=== PATIENT | male | born 1985 | race Caucasian/White ===

== ENCOUNTER 2016-07-14 23:36 | Emergency (ER) | payer OTHER ==
[~2016-07-14] VITALS: Ht 172.7 cm; Wt 118.4 kg
[~2016-07-14 23:36] MED LIST: ACET-1256 PO; IBUP-1050 PO
[2016-07-14 23:41] VITALS: TEMP 36.8; Ht 172.7 cm; Wt 118.4 kg
[2016-07-15] MEDS ORDERED: KETOROLAC TROMETHAMINE 60 MG/2 ML VIAL IM STA
[2016-07-15] MEDS ORDERED: HYDROmorphone INJ 2 MG/ML SYR/VIAL IM STA
--- NOTE | 2016-07-15 00:19 | EMERGENCY ROOM VISIT NOTE ---
History Report prepared by Paresh: Carey Mann Under the Supervision of: Dr. Jaimee Aponte D.O. First contact with patient: 23:47 Chief Complaint: DENTAL PAIN Stated Complaint: SEVERE TOOTH ACHE/INFECTION,RIGHT EAR PAIN Nursing Triage Summary: Patient reports having issues with the wisdom tooth on the right lower jaw for about 3 weeks. Patient just got dental insurance approved. Patient has been taking Tylenol and Motrin for the pain; patient was on Amoxicillin. Patient saw the dentist on Thursday last week and was placed on Penicillin. Pain is worsening. Dentist prescribed Tylenol #3 for the patient today which helped x 2 doses. Patient reports pain is back to what it was before at this time. History of Present Illness The patient is a 30 year old male who presents to the Emergency Room with complaints of persistent right lower wisdom tooth pain starting 3 weeks [employer]. The patient currently rates his pain as an 8.5/10 in severity. The patient states that his right lower wisdom tooth has been severely infected over the last 3 weeks. The patient states that he took Tylenol and Ibuprofen every 4 hours which made the pain tolerable to the patient. He states that about 6 days ago he started experiencing stomach pain and stopped taking both in order to stop the stomach pain. The patient states that 3 days ago he saw his dentist and was prescribed penicillin for the infection and started to take Tylenol and ibuprofen alternating. He states that the pain continued. He states he called the dentist earlier today and was prescribed Tylenol with codeine for pain. The patient states that the pain was causing ear pain. The patient states that he is scheduled to have his tooth extracted in 2 days by an oral surgeon. The patient states he has not eaten for the last 8 hour and has taken a dose of Tylenol with codeine on an empty stomach. He states that he does currently have some nausea. The patient denies any other cold symptoms. Source of History: patient Onset: 3 weeks FINANCIAL CONSULTANT Position: teeth (right lower wisdom tooth) Symptom Intensity: 8.5/10 Timing: other (persistent) Modifying Factors (Relieving): tylenol, ibuprofen Note: Associated symptoms: Ear pain Patient denies cold symptoms. Review of Systems See HPI for pertinent positives & negatives. A total of 10 systems reviewed and were otherwise negative. Past Medical & Surgical Medical Problems: (1) Asthma (2) Bronchitis (3) Cyst - pilonidal (4) Hernia repair (5) Pneumonia Family History Cancer Diabetes mellitus Gallbladder disease Heart disease Hypertension Kidney disease Lung disease Seizures Social History Smoking Status: Current Every Day Smoker Alcohol Use: occasionally Marital Status: Housing Status: lives with family Occupation Status: employed Current/Historical Medications Scheduled PRN Acetaminophen (Tylenol), 1,000 MG PO Q4 PRN for Pain or Fever Ibuprofen (Advil), 400 MG PO Q4 PRN for Headache Allergies Coded Allergies: No Known Allergies (Unverified , 07/14/16) Physical Exam Vital Signs Date Time Temp Pulse Resp B/P Pulse Ox O2 Delivery O2 Flow Rate FiO2 07/15/16 01:11 86 16 151/81 98 07/14/16 23:41 36.8 93 18 161/85 97 Room Air Physical Exam HEENT: Head - normocephalic and atraumatic Pupils are equal, round, and reactive to light. Extraocular eye muscles are intact, and sclera are anicteric. Nose - moist nasal mucosa without discharge. Mouth - moist buccal mucosa, fractured right lower wisdom tooth, no surrounding erythema or gingival edema Oropharynx is nonerythematous and there is no tonsillar exudate or edema noted. Neck: Supple; no JVD, nuchal rigidity, cervical lymphadenopathy. Heart: Regular rate and rhythm. There is a normal S1 and S2 with no murmurs, clicks, or gallops appreciated. Lungs: Clear to auscultation bilaterally with no wheezes, rales, or rhonchi. Abdomen: Soft, completely nontender, nondistended, with good bowel sounds. There are no palpable pulsatile masses or hepatosplenomegaly. There is no guarding, rigidity, or rebound noted. Extremities: No evidence of cyanosis, clubbing, or edema. There are easily palpable peripheral pulses. Skin: warm and dry with good turgor and no rashes. Medical Decision & Procedures Medications Administered Medications (Trade) Dose Ordered Sig/Connor Route Start Time Stop Time Status Last Admin Dose Admin Ketorolac Tromethamine (Toradol Inj) 60 mg NOW STAT IM 07/15/16 00:00 07/15/16 00:01 DC 07/15/16 00:09 60 MG Hydromorphone HCl (Dilaudid Inj) 2 mg NOW STAT IM 07/15/16 00:00 07/15/16 00:01 DC 07/15/16 00:09 2 MG Procedure Medications Administered: Ketoralac Tromethamine Hydromorphone HCl ED Course 2351: Past medical records reviewed. The patient was evaluated in room B11B. A complete history and physical exam was performed. 000: Ordered Toradol Inj 60 mg IM, Dilaudid Inj 2 mg IM. 0038: Upon reevaluation, the patient had significant relief of his symptoms. I discussed findings and results with him. He verbalized agreement of the treatment plan. The patient was discharged home. Medical Decision The patient is a 30 year old male who presents to the ED with dental pain. Differential diagnosis includes but are not limited to dental abscess and dentalgia. The patient was felt to have a dental infection that is currently being treated with penicillin. Patient's pain has escalated. He was prescribed Tylenol No. 3. Patient's pain became more severe this evening to the point that he could not tolerate it. He is scheduled to have the tooth extracted in 2 days. He was given IM Dilaudid and IM Toradol with significant relief to this pain. The patient will start taking the Tylenol with Codeine every 4-6 hours after arriving at home. He has enough to last him through till Thursday when he will see an oral surgeon for tooth extraction. The tooth was fractured but there were no obvious signs of surrounding infection. Impression Primary Impression: Dentalgia Scribe Attestation The scribe's documentation has been prepared under my direction and personally reviewed by me in its entirety. I confirm that the note above accurately reflects all work, treatment, procedures, and medical decision making performed by me. Departure Information Dispostion Home / Self-Care Referrals Bob Talbot M.D. (PCP) Forms HOME CARE DOCUMENTATION FORM, IMPORTANT VISIT INFORMATION Patient Instructions My [facility] Additional Instructions Rest with your head elevated. Take 800mg every 6-8 hours with a meal for pain Use tylenol #3 as directed. Follow up on Thu with oral surgeon
[2016-07-15 01:11] VITALS: BP 151/81; PULSE 86; O2SAT 98
== END 2016-07-15 01:12 | disposition home or self-care (01) ==
LOC: C.EDB 23:37
DX: K08.89 Other specified disorders of teeth and supporting structures (principal); J45.909 Unspecified asthma, uncomplicated; F17.200 Nicotine dependence, unspecified, uncomplicated; Z87.01 Personal history of pneumonia (recurrent); Z83.3 Family history of diabetes mellitus; Z82.49 Family history of ischemic heart disease and other diseases of the circulatory system; Z84.1 Family history of disorders of kidney and ureter

== ENCOUNTER 2016-12-15 00:59 | Emergency (ER) | payer OTHER ==
[~2016-12-15] VITALS: Ht 175.3 cm; Wt 108.9 kg
[2016-12-15 01:08] VITALS: TEMP 36.7; Ht 175.3 cm; Wt 108.9 kg
[2016-12-15] MEDS ORDERED: PROCHLORPERAZINE 5 MG/ML 2 ML VIAL IV STA (01:14)
[2016-12-15] MEDS ORDERED: DiphenhydrAMINE HCL 50 MG/ML VIAL IV STA (01:14)
[2016-12-15] MEDS ORDERED: SODIUM CHLORIDE 0.9% 1000ML 1,000 ML IV STA (01:14)
[2016-12-15] MEDS ORDERED: KETOROLAC TROMETHAMINE 30 MG/ML VIAL IV STA (01:14)
--- NOTE | 2016-12-15 01:29 | EMERGENCY ROOM VISIT NOTE ---
History Report prepared by Paresh: Deirdre Bernal Under the Supervision of: Dr. Yordy Campuzano M.D. First contact with patient: 01:09 Chief Complaint: CHEST PAIN Stated Complaint: SHARP PAIN ACROSS CHEST DOWN RT ARM W/ HEADACHE History of Present Illness The patient is a 31 year old male who presents to the Emergency Room with complaints of intermittent sharp chest pain for 2 days. The patient states that tonight he was driving to get his kids since he just got home from the beach when it became the worst he has ever had it. He currently rates his pain as a 8/ 10. He notes that he slumped over the steering wheel because the pain was so bad. He notes that he used his inhaler that he has for asthma with little relief. The patient complains of a headache and cough. The patient denies nausea , vomiting, loss of consciousness, and abdominal pain. Source of History: patient Onset: 2 days Position: chest Symptom Intensity: 8/10 Quality: sharp Timing: intermittent Associated Symptoms: + headache, + cough, No LOC, No nausea, No vomiting, No abdominal pain Review of Systems See HPI for pertinent positives & negatives. A total of 10 systems reviewed and were otherwise negative. Past Medical & Surgical Medical Problems: (1) Asthma (2) Bronchitis (3) Cyst - pilonidal (4) Hernia repair (5) Pneumonia Family History Cancer Diabetes mellitus Fhx blood clots Gallbladder disease Heart disease Hypertension Kidney disease Lung disease Seizures Social History Smoking Status: Current Every Day Smoker Alcohol Use: occasionally Marital Status: Housing Status: lives with family Occupation Status: employed Current/Historical Medications Scheduled PRN Acetaminophen (Tylenol), 1,000 MG PO Q4 PRN for Pain or Fever Albuterol Hfa (Ventolin Hfa), 2 PUFFS INH Q6H PRN for SOB/Wheezing Aspirin (Aspirin), 650 MG PO Q4 PRN for Pain Ibuprofen (Advil), 400 MG PO Q4 PRN for Headache Allergies Coded Allergies: No Known Allergies (Unverified , 12/15/16) Physical Exam Vital Signs Date Time Temp Pulse Resp B/P (MAP) Pulse Ox O2 Delivery O2 Flow Rate FiO2 12/15/16 03:05 70 20 111/68 95 Room Air 12/15/16 02:05 69 16 123/67 94 Room Air 12/15/16 01:12 80 12/15/16 01:08 97 Room Air 8/21/17 01:08 36.7 88 20 141/88 97 Room Air Physical Exam GENERAL: Patient is uncomfortable appearing and in moderate distress. HEENT: No acute trauma, normocephalic atraumatic, mucous membranes moist, no nasal congestion, no scleral icterus. NECK: No stridor, no adenopathy, no meningismus, trachea is midline. LUNGS: No dyspnea. Clear to auscultation and equal bilaterally. No wheeze, no rhonchi. HEART: Regular rate and rhythm. No murmurs, rubs, gallops appreciated. CHEST: Tenderness to palpation over left anterior chest. ABDOMEN: Soft, nontender, bowel sounds positive, no masses appreciated, no peritonitis. BACK: No midline tenderness, no CVA tenderness EXTREMITIES: Normal motion all extremities, no cyanosis, no edema. NEUROLOGIC: Alert and oriented, no acute motor or sensory deficits, no focal weakness, cranial nerves grossly intact. SKIN: No rash, no jaundice, no diaphoresis. Medical Decision & Procedures ER Provider Diagnostic Interpretation: X ray results are stated below per my interpretation: Chest: 1 view: No infiltrate, no effusion, normal cardiac border. Laboratory Results 12/15/16 01:10 Red Blood Count 4.96, Mean Corpuscular Volume 86.3, Mean Corpuscular Hemoglobin 30.6, Mean Corpuscular Hemoglobin Concent 35.5, Mean Platelet Volume 11.0, Neutrophils (%) (Auto) 57.0, Lymphocytes (%) (Auto) 32.9, Monocytes (%) (Auto) 7.0, Eosinophils (%) (Auto) 2.5, Basophils (%) (Auto) 0.3, Neutrophils # (Auto) 6.78, Lymphocytes # (Auto) 3.90, Monocytes # (Auto) 0.83, Eosinophils # (Auto) 0.30, Basophils # (Auto) 0.03 12/15/16 01:10 Test 12/15/16 01:10 12/15/16 02:44 White Blood Count 11.87 K/uL (4.8-10.8) Red Blood Count 4.96 M/uL (4.7-6.1) Hemoglobin 15.2 g/dL (14.0-18.0) Hematocrit 42.8 % (42-52) Mean Corpuscular Volume 86.3 fL (80-100) Mean Corpuscular Hemoglobin 30.6 pg (25-34) Mean Corpuscular Hemoglobin Concent 35.5 g/dl (32-36) Platelet Count 242 K/uL (130-400) Mean Platelet Volume 11.0 fL (7.4-10.4) Neutrophils (%) (Auto) 57.0 % Lymphocytes (%) (Auto) 32.9 % Monocytes (%) (Auto) 7.0 % Eosinophils (%) (Auto) 2.5 % Basophils (%) (Auto) 0.3 % Neutrophils # (Auto) 6.78 K/uL (1.4-6.5) Lymphocytes # (Auto) 3.90 K/uL (1.2-3.4) Monocytes # (Auto) 0.83 K/uL (0.11-0.59) Eosinophils # (Auto) 0.30 K/uL (0-0.5) Basophils # (Auto) 0.03 K/uL (0-0.2) RDW Standard Deviation 44.0 fL (36.4-46.3) RDW Coefficient of Variation 14.0 % (11.5-14.5) Immature Granulocyte % (Auto) 0.3 % Immature Granulocyte # (Auto) 0.03 K/uL (0.00-0.02) D-Dimer < 190 ug/L FEU (0-500) Anion Gap 7.0 mmol/L (3-11) Est Creatinine Clear Calc Drug Dose 159.3 ml/min Estimated GFR () 136.3 Estimated GFR (Non- 117.6 BUN/Creatinine Ratio 19.9 (10-20) Calcium Level 8.7 mg/dl (8.5-10.1) Total Creatine Kinase 304 U/L (39-308) Creatine Kinase MB 2.6 ng/ml (0.5-3.6) Creatine Kinase MB Ratio 0.9 (0-3.0) Troponin I < 0.015 ng/ml (0-0.045) Bedside Troponin I < 0.030 ng/ml (0-0.045) Laboratory results as reviewed by me. Medications Administered Medications (Trade) Dose Ordered Sig/Connor Route Start Time Stop Time Status Last Admin Dose Admin Prochlorperazine Edisylate (Compazine Inj) 10 mg NOW STAT IV 12/15/16 01:14 12/15/16 01:16 DC 12/15/16 01:28 10 MG Diphenhydramine HCl (Benadryl Inj) 50 mg NOW STAT IV 12/15/16 01:14 12/15/16 01:16 DC 12/15/16 01:29 50 MG Ketorolac Tromethamine (Toradol Inj) 30 mg NOW STAT IV 12/15/16 01:14 12/15/16 01:16 DC 12/15/16 01:29 30 MG Sodium Chloride 1,000 ml @ 999 mls/hr Q1H1M STAT IV 12/15/16 01:14 12/15/16 02:14 DC 12/15/16 01:28 999 MLS/HR ECG Indication: chest pain Rate (beats per minute): 78 Rhythm: normal sinus Findings: no acute ischemic change, no ectopy ED Course 0110: The patient was evaluated in room B9. A complete history and physical exam was performed. 0114: Ordered NSS 1000 ml @ 999 mls/hr IV, Toradol Inj 30 mg IV, Benadryl Inj 50 mg IV, Compazine Inj 10 mg IV. 0214: I reevaluated the patient and he has a resolution of he chest pain. He is feeling much better. I plan to repeat his troponin in 90 minutes and if it is normal, he will be discharged. 0303: Reevaluated the patient and he is feeling much better. Discussed results and discharge instructions: He verbalized understanding and agreement. The patient is ready for discharge. Medical Decision Differential: Cardiac Ischemia (STEMI, NSTEMI, Unstable Angina, etc), Aortic Dissection, Arrhythmia, Pulmonary Embolism, Pneumonia, Pneumothorax, MSK, Infectious, Pericarditis/Myocarditis, Esophageal Rupture, Gastrointestinal, amongst other pathologies entertained. 31 yr old male arrives with acute left chest pain worse with palpation following trip to beach. Exam benign other than he is clearly anxious and has TTP over left anterior chest. EKG normal. Trop x 2 negative (> 6 hours from initial onset). Dimer negative and low risk PE thus CT not indicated. Labs otherwise normal. CXR looks good. No wheezing on exam. Stressed quitting smoking. Feeling much better after toradol, benadryl, compazine. Reviewed multiple causes of chest pains. Suspect this is costochondral related. Stable and breathing comfortably, discharged to home with . Medication Reconcilliation Current Medication List: was personally reviewed by me Blood Pressure Screening Patient's blood pressure: Normal blood pressure Impression Primary Impression: Left sided chest pain Scribe Attestation The scribe's documentation has been prepared under my direction and personally reviewed by me in its entirety. I confirm that the note above accurately reflects all work, treatment, procedures, and medical decision making performed by me. Departure Information Dispostion Home / Self-Care Referrals Bob Talbot M.D. (PCP) Forms HOME CARE DOCUMENTATION FORM, IMPORTANT VISIT INFORMATION Patient Instructions ED Chest Pain Atypical Unkn Cause, My [facility]
[2016-12-15] MEDS ORDERED: VNTHFA/IN INH (01:30)
[2016-12-15] MEDS ORDERED: ASPI325T45 PO (01:30)
[2016-12-15 01:47] LABS: BASO % 0.3 %; BASO ABS # 0.03 K/uL (0-0.2); COMPLETE YES; EOS % 2.5 %; HEMATOCRIT 42.8 % (42-52); IG% 0.3 %; LYMPH % 32.9 %; MEAN CELL VOLUME 86.3 fL (80-100); MEAN CORPUSCULAR HEMOGLOBIN 30.6 pg (25-34); MEAN CORPUSCULAR HGB CONC 35.5 g/dl (32-36); PLATELET COUNT 242 K/uL (130-400); RED BLOOD COUNT 4.96 M/uL (4.7-6.1); WHITE BLOOD COUNT 11.87 K/uL (4.8-10.8)
[2016-12-15 02:00] LABS: GLUCOSE 106 mg/dl (70-99)
[2016-12-15 02:01] LABS: BLOOD UREA NITROGEN 16 mg/dl (7-18); BUN/CREATININE RATIO 19.9 (10-20); CALCIUM 8.7 mg/dl (8.5-10.1); CARBON DIOXIDE 26 mmol/L (21-32); CHLORIDE 108 mmol/L (98-107); CREATININE 0.81 mg/dl (0.60-1.40); POTASSIUM 3.8 mmol/L (3.5-5.1); SODIUM 141 mmol/L (136-145)
[2016-12-15 02:05] LABS: CKMB/CK RATIO 0.9 (0-3.0)
[2016-12-15 03:05] VITALS: BP 111/68; PULSE 70; O2SAT 95
--- NOTE | 2016-12-15 06:57 | DIAGNOSTIC IMAGING REPORT ---
CHEST ONE VIEW PORTABLE HISTORY: 31 years-old Male Chest Pain COMPARISON: 02/25/2011 TECHNIQUE: Portable upright AP view of the chest FINDINGS: Cardiomediastinal and hilar silhouettes are within normal limits. There is no pneumothorax or pleural effusion. No focal airspace consolidation. The bones of the chest appear to be grossly intact. There is mild convex right curvature of the midthoracic spine, likely positional. IMPRESSION: No acute cardiopulmonary process. The above report was generated using voice recognition software. It may contain grammatical, syntax or spelling errors. Electronically signed by: Larry Coronado M.D. 12/15/2016 6:55 AM Dictated Date/Time: 12/15/2016 6:54 AM
== END 2016-12-15 03:10 | disposition home or self-care (01) ==
LOC: C.EDB 01:00
DX: R07.9 Chest pain, unspecified (principal); J45.909 Unspecified asthma, uncomplicated; Z83.3 Family history of diabetes mellitus; Z82.49 Family history of ischemic heart disease and other diseases of the circulatory system; Z82.0 Family history of epilepsy and other diseases of the nervous system; F17.200 Nicotine dependence, unspecified, uncomplicated

== ENCOUNTER 2017-05-29 08:29 | Emergency (ER) | payer OTHER ==
[~2017-05-29] VITALS: Ht 165.1 cm; Wt 114.0 kg
[~2017-05-29 08:29] MED LIST changes: +ASPI325T45 PO; +VNTHFA/IN INH
[2017-05-29 08:34] VITALS: TEMP 36.3; Ht 165.1 cm; Wt 114.0 kg
[2017-05-29] MEDS ORDERED: SODIUM CHLORIDE 0.9% 1000ML 1,000 ML IV STA (09:05)
[2017-05-29] MEDS ORDERED: ONDANSETRON INJ 2 MG/ML 2 ML VIAL IV STA (09:05)
[2017-05-29] MEDS ORDERED: MoRPHine SULFATE 4 MG/ML 1 ML CARP\\VIAL IV STA (09:05)
[2017-05-29 09:25] LABS: HEMATOCRIT 44.4 % (42-52); HEMOGLOBIN 16.1 g/dL (14.0-18.0); MEAN CELL VOLUME 86.4 fL (80-100); MEAN CORPUSCULAR HEMOGLOBIN 31.3 pg (25-34); MEAN CORPUSCULAR HGB CONC 36.3 g/dl (32-36); MEAN PLATELET VOLUME 10.6 fL (7.4-10.4); PLATELET COUNT 214 K/uL (130-400); RED CELL DISTRIBUTION WIDTH CV 13.7 % (11.5-14.5); RED CELL DISTRIBUTION WIDTH SD 43.7 fL (36.4-46.3); WHITE BLOOD COUNT 8.82 K/uL (4.8-10.8)
[2017-05-29 09:33] LABS: ALBUMIN 3.7 gm/dl (3.4-5.0); ALT/SGPT 33 U/L (12-78); BLOOD UREA NITROGEN 13 mg/dl (7-18); CALCIUM 8.9 mg/dl (8.5-10.1); CARBON DIOXIDE 25 mmol/L (21-32); CREATININE 1.01 mg/dl (0.60-1.40); GLUCOSE 144 mg/dl (70-99); LIPASE 113 U/L (73-393); POTASSIUM 3.8 mmol/L (3.5-5.1); SODIUM 138 mmol/L (136-145)
[2017-05-29 09:36] LABS: ALKALINE PHOSPHATASE 38 U/L (45-117); AST/SGOT 23 U/L (15-37); TOTAL PROTEIN 7.8 gm/dl (6.4-8.2)
--- NOTE | 2017-05-29 10:04 | DIAGNOSTIC IMAGING REPORT ---
CT SCAN OF THE ABDOMEN AND PELVIS WITHOUT IV CONTRAST CLINICAL HISTORY: Left lower quadrant abdominal pain. Hematuria. COMPARISON STUDY: Abdominal CT dated 02/24/2010. TECHNIQUE: CT scan of the abdomen and pelvis is performed from the lung bases to the proximal femora. Images are reviewed in the axial, sagittal, and coronal planes. IV contrast was not administered for this examination as per the referring clinician. A dose lowering technique was utilized adhering to the principles of ALARA. CT DOSE: 1118.00 mGycm FINDINGS: Lung bases: The heart is normal in size and without pericardial effusion. The lung bases are clear. There is a tiny hiatal hernia. Liver: The unenhanced liver is enlarged, measuring 20.1 cm in length. There is evidence of mild steatosis. Fatty sparing is seen adjacent to gallbladder fossa. There is no intrahepatic biliary ductal dilatation. Gallbladder: Unremarkable. Spleen: Normal in size and attenuation. Pancreas: Unremarkable. Adrenal glands: Unremarkable. Kidneys: The unenhanced kidneys are normal in size. There is a 2 mm obstructing calculus identified in the distal left ureter as seen on image #414. This is located just above the vesicoureteral junction and causes mild left hydronephrosis. An additional punctate nonobstructing calculus is seen in the left upper pole. No right renal calculi are identified and there is no right-sided hydronephrosis. There is no evidence of contour deforming renal mass lesion. Abdominal vasculature: The abdominal aorta is normal in course and caliber. Bowel: The small bowel and colon are normal in course and caliber. The appendix is well-visualized and normal. Peritoneum: There is no intraperitoneal free air or abdominal ascites. Lymphadenopathy: None. Pelvic viscera: The bladder, prostate, and seminal vesicles are normal as visualized. Skeletal structures: No lytic or blastic lesions are seen. IMPRESSION: 1. There is a 2 mm obstructing calculus in the distal left ureter just above the vesicoureteral junction. This causes mild left hydronephrosis. 2. An additional punctate nonobstructing calculus is seen in the left upper pole. 3. No right renal calculi are clearly identified. 4. Hepatomegaly and mild hepatic steatosis. Electronically signed by: Mina Barrios M.D. 05/29/2017 10:03 AM Dictated Date/Time: 05/29/2017 9:53 AM
[2017-05-29] MEDS ORDERED: LEVO50TA PO (10:05)
[2017-05-29] MEDS ORDERED: CHOL200010 PO (10:05)
[2017-05-29] MEDS ORDERED: TRAM-10 PO (10:05)
[2017-05-29] MEDS ORDERED: DOCU-94 PO (10:05)
[2017-05-29] MEDS ORDERED: FERR1TAB13 PO (10:05)
[2017-05-29] MEDS ORDERED: SIMV20TA2 PO (10:05)
[2017-05-29] MEDS ORDERED: FRS/40 PO (10:05)
[2017-05-29] MEDS ORDERED: WARF5TAB7 PO (10:05)
[2017-05-29] MEDS ORDERED: OXYB5TAB21 PO (10:05)
[2017-05-29] MEDS ORDERED: WARF2.5T8 PO (10:05)
[2017-05-29] MEDS ORDERED: NTRGSL/4 UT (10:05)
[2017-05-29] MEDS ORDERED: CYAN100020 PO (10:05)
[2017-05-29] MEDS ORDERED: ASPI81TA28 PO (10:05)
[2017-05-29] MEDS ORDERED: LCTX PO (10:05)
[2017-05-29] MEDS ORDERED: HYDR-5688 PO (10:20)
[2017-05-29 10:35] VITALS: BP 118/64; PULSE 72; O2SAT 94
--- NOTE | 2017-05-30 17:36 | EMERGENCY ROOM VISIT NOTE ---
ED Visit Note First contact with patient: 08:34 Chief Complaint: Abdominal pain. History of Present Illness: Mr. Perez is a 31 year-old white male complaining of left lower quadrant abdominal pain. Historically patient reports no gastrointestinal disorders and is status post inguinal hernia repair from a child Patient reports acute onset of severe left lower quadrant abdominal pain that started approximately 1 hours ago after he urinated and while he was moving his bowels. Since that time the pain has been constant but has slightly waxed and waned in intensity. Patient reports at its onset he rates his discomfort 10/10 and currently his pain is 3/10.. He was not able to describe his discomfort. The pain is nonradiating. He has not identified any aggravating or alleviating factors related to the pain. He has not taken a medication for pain prior to arrival at the hospital. Associated with his pain he reports he's nauseated and has had one episode of vomiting. Patient denies fevers, chills, sweats, skin eruptions, skin color changes, upper respiratory tract symptoms, shortness of breath, chest pain, diarrhea, constipation, rectal bleeding, black/tarry stools, urinary symptoms, hematuria, back/flank pain. Review of Systems: As noted above in history of present illness. All body systems were reviewed and found to be negative as noted above. Past Medical History: As previously noted, asthma, bronchitis, pneumonia, pilonidal abscess. Current Medications: Patient denies. Allergies to Medications: Patient denies. Social History: Patient is currently employed; he feels safe in his home environment; he admits to tobacco use and alcohol use. Physical Examination: Vital Signs: Date Time Temp Pulse Resp B/P (MAP) Pulse Ox O2 Delivery O2 Flow Rate FiO2 05/29/17 10:35 72 20 118/64 94 05/29/17 09:57 77 16 119/85 97 Room Air 05/29/17 09:25 78 05/29/17 08:34 36.3 92 24 144/98 96 Room Air GENERAL: 31-year-old male in mild distress due to pain, nontoxic-appearing, afebrile and hemodynamically stable. NEUROLOGICAL: Awake, alert and oriented to person, place and time. Answering questions appropriately and following commands. Normal gait. Good hand eye coordination. SKIN: Warm, dry and pink. No soft tissue eruptions or trauma noted. HEENT: Atraumatic and normocephalic. PERRLA. Sclera white and conjunctiva pink. Oral cavity moist and pink. Pharynx is nonerythematous or edematous. Speech normal. No lymphadenopathy. Trachea midline. No jugular venous distention. BACK: No tenderness over the bony spine. No CVA tenderness. THORAX: Lungs sounds are clear to auscultation and equal bilaterally with symmetrical chest wall. No wheezing, rales or rhonchi. No crepitus, tenderness , subcutaneous air or deformities noted. HEART: Regular rate and rhythm. No gallops, rubs or murmurs are appreciated. ABDOMEN: Flat, soft and nontender. Positive bowel sounds in all quadrants. No guarding, rigidity or organomegaly. EXTREMITIES: Moves all extremities well on command and with purpose. All distal neurovascular statuses are intact and equal bilaterally. ED Course: Patient is assessed as noted above. Patient's medication list was reviewed. Laboratory Testing: Test 05/29/17 08:45 05/29/17 09:00 Range/Units White Blood Count 8.82 4.8-10.8 K/uL Red Blood Count 5.14 4.7-6.1 M/uL Hemoglobin 16.1 14.0-18.0 g/dL Hematocrit 44.4 42-52 % Mean Corpuscular Volume 86.4 80-100 fL Mean Corpuscular Hemoglobin 31.3 25-34 pg Mean Corpuscular Hemoglobin Concent 36.3 32-36 g/dl Platelet Count 214 130-400 K/uL Mean Platelet Volume 10.6 7.4-10.4 fL RDW Standard Deviation 43.7 36.4-46.3 fL RDW Coefficient of Variation 13.7 11.5-14.5 % Neutrophils % (Manual) 31.6 % Lymphocytes % (Manual) 28.1 % Variant Lymphocytes % (manual) 30.7 % Monocytes % (Manual) 6.1 % Eosinophils % (Manual) 2.6 % Basophils % (Manual) 0.9 0-2 % Neutrophils # (Manual) 2.79 1.4-6.5 K/uL Total Absolute Neutrophils 2.79 1.4-6.5 K/uL Lymphocytes # (Manual) 2.48 1.2-3.4 K/uL Absolute Variant Lymphocytes 2.71 K/uL Total Absolute Lymphocytes 5.19 1.2-3.4 K/uL Monocytes # (Manual) 0.54 0.11-0.59 K/uL Eosinophils # (Manual) 0.23 0-0.5 K/uL Basophils # (Manual) 0.08 0-0.2 K/uL Sodium Level 138 136-145 mmol/L Potassium Level 3.8 3.5-5.1 mmol/L Chloride Level 105 98-107 mmol/L Carbon Dioxide Level 25 21-32 mmol/L Anion Gap 8.0 3-11 mmol/L Blood Urea Nitrogen 13 7-18 mg/dl Creatinine 1.01 0.60-1.40 mg/dl Est Creatinine Clear Calc Drug Dose 122.5 ml/min Estimated GFR () 113.5 Estimated GFR (Non- 98.0 BUN/Creatinine Ratio 12.5 10-20 Random Glucose 144 70-99 mg/dl Calcium Level 8.9 8.5-10.1 mg/dl Total Bilirubin 0.2 0.2-1 mg/dl Direct Bilirubin < 0.1 0-0.2 mg/dl Aspartate Amino Transf (AST/SGOT) 23 15-37 U/L Alanine Aminotransferase (ALT/SGPT) 33 12-78 U/L Alkaline Phosphatase 38 45-117 U/L Total Protein 7.8 6.4-8.2 gm/dl Albumin 3.7 3.4-5.0 gm/dl Lipase 113 73-393 U/L Urine Color DK YELLOW Urine Appearance CLEAR CLEAR Urine pH 5.0 4.5-7.5 Urine Specific [place] 1.026 1.000-1.030 Urine Protein TRACE NEG Urine Glucose (UA) NEG NEG Urine Ketones NEG NEG Urine Occult Blood 3+ NEG Urine Nitrite NEG NEG Urine Bilirubin NEG NEG Urine Urobilinogen NEG NEG Urine Leukocyte Esterase NEG NEG Urine WBC (Auto) 1-5 0-5 /hpf Urine RBC (Auto) >30 0-4 /hpf Urine Hyaline Casts (Auto) 1-5 0-5 /lpf Urine Epithelial Cells (Auto) 0-5 0-5 /lpf Urine Bacteria (Auto) NEG NEG Noncontrast Abdominal/Pelvic CT: Was reviewed by myself and read by radiologist showing a 2 mm obstructing calculus in the distal left ureter causing mild hydronephrosis. An additional punctate nonobstructing calculus in the left upper pole of the kidney was noted. Hepatomegaly and mild hepatic steatosis. Patient was hydrated with normal saline and he received 4 mg of morphine IV and 4 mg of Zofran IV for his symptoms. Patient was reassessed multiple times during his stay in the emergency department. Patient's case was reviewed with Dr. Love; we agreed on diagnostic approach, treatment, disposition and plan per Patient was educated about tonight's findings and instructed on his treatment plan; he verbalized understanding and agreement with this plan. Clinical Impression: Left ureter calculus. Decision-Making: Initially my differential diagnosis I considered urinary calculus, diverticulitis, bowel obstruction, constipation, pyelonephritis and other causes. Disposition: Patient discharged home in stable condition accompanied by his ; prior to departure he was reassessed and subjectively reported he was feeling much better and rated his discomfort 2/10. Plan: Patient was placed on a sliding pain scale of ibuprofen, acetaminophen and [place] ; his name was checked in the state database and no red noted and he was given appropriate narcotic precautions. Patient was hydrated with normal saline and encouraged to strain all urine and collect all stones for analysis. Patient was encouraged to see Dr. Morgan, urologist, for specialty care and treatment. Patient was encouraged to the ED for worsening/uncontrolled pain, fevers, uncontrolled vomiting, urinary burning, increased urinary frequency or any new/ concerning symptoms.
== END 2017-05-29 10:36 | disposition home or self-care (01) ==
LOC: C.EDB 08:30
DX: N13.2 Hydronephrosis with renal and ureteral calculous obstruction (principal); J45.909 Unspecified asthma, uncomplicated; Z87.01 Personal history of pneumonia (recurrent); Z72.0 Tobacco use

== ENCOUNTER 2017-12-16 00:13 | Emergency (ER) | payer OTHER ==
[~2017-12-16] VITALS: Ht 172.7 cm; Wt 99.7 kg
[2017-12-16 00:32] VITALS: TEMP 36.4; Ht 172.7 cm; Wt 99.7 kg
[2017-12-16] MEDS ORDERED: ALBUT/IPRATROP 3MG/0.5MG NEB 3 ML VIAL INH ONE (01:00)
[2017-12-16] MEDS ORDERED: PRED20TA2 PO (02:00)
[2017-12-16] MEDS ORDERED: VNTHFA/IN INH (02:00)
[2017-12-16] MEDS ORDERED: AZITTAB PO (02:00)
[2017-12-16 02:07] VITALS: BP 125/77; PULSE 79; O2SAT 98
--- NOTE | 2017-12-16 06:38 | DIAGNOSTIC IMAGING REPORT ---
CHEST 2 VIEWS ROUTINE CLINICAL HISTORY: Cough. Possible fever. COMPARISON STUDY: Chest radiograph December 15, 2016. FINDINGS: Lung volumes are normal. There is no pneumothorax or pleural effusion. No consolidation is identified. Cardiac size is normal. Mediastinal contours are normal. There is no evidence for pulmonary edema. IMPRESSION: No acute cardiopulmonary findings. Electronically signed by: Grey Gonzalez M.D. 12/16/2017 6:37 AM Dictated Date/Time: 12/16/2017 6:37 AM
--- NOTE | 2017-12-16 06:46 | EMERGENCY ROOM VISIT NOTE ---
History First contact with patient: 00:50 Chief Complaint: COUGH Stated Complaint: COUGHING-HARD TO BREATHE AT TIMES Nursing Triage Summary: Pt complains of cough and congestion for 1.5 weeks. Pt using OTC medications with no relief. History of Present Illness The patient is a 32 year old male who presents to the Emergency Room with complaints of persistent cough and wheezing for the past 10 days. Patient states that his has been ill with similar symptoms. He has not had fever or chills, but he has been medicating at home with [id number] medicines. The patient is concerned for infection, and states that his son has an upcoming surgical procedure. He is concerned that if he is sick they will have to delay their child's procedure. The patient is not having chest pain or chest tightness. The cough has worsened over the past 2 days and is persistent. No dyspnea on exertion. He rates his discomfort a 5/10. Review of Systems More than 10 systems were reviewed and otherwise negative with the exception of history of present illness. Past Medical/Surgical History Medical Problems: (1) Asthma (2) Bronchitis (3) Cyst - pilonidal (4) Hernia repair (5) Pneumonia Family History Cancer Diabetes mellitus Fhx blood clots Gallbladder disease Heart disease Hypertension Kidney disease Lung disease Seizures Social History Smoking Status: Current Every Day Smoker Alcohol Use: occasionally Marital Status: Housing Status: lives with family Occupation Status: employed Current/Historical Medications Scheduled Albuterol Hfa (Ventolin Hfa), 2 PUFFS INH QID Azithromycin (Zithromax Z-Mickey), 1 PKT PO UD Prednisone (Prednisone Tab), 2 TAB PO DAILY Physical Exam Vital Signs Date Time Temp Pulse Resp B/P (MAP) Pulse Ox O2 Delivery O2 Flow Rate FiO2 12/16/17 02:07 79 20 125/77 98 12/16/17 00:32 36.4 85 20 118/74 98 Room Air Physical Exam VITALS: Vitals are noted on the nurse's note and reviewed by myself. Vital signs stable. GENERAL: Well-developed, well-nourished, white male, who is in no acute distress and resting comfortably. Patient is cooperative with the examination. HEAD: Normocephalic atraumatic. EARS: External ear normal. External auditory canals clear, tympanic membranes pearly alvarenga without erythema or effusion bilaterally. EYES: Pupils equal round and reactive to light and accommodation. Conjunctivae without injection, sclerae without icterus. Extraocular movements intact. NOSE: Patent, turbinates without inflammation or discharge. MOUTH: Mucous membranes moist. Tonsils are not enlarged. Pharynx without erythema, blood, or exudate. Uvula midline. Airway patent. NECK: Supple without nuchal rigidity. No lymphadenopathy. No thyromegaly. Cervical spine is nontender. HEART: Regular rate and rhythm without murmurs gallops or rubs. LUNGS: Diffuse wheezing and rhonchi throughout Medical Decision & Procedures ER Provider Diagnostic Interpretation: CHEST 2 VIEWS ROUTINE CLINICAL HISTORY: Cough. Possible fever. COMPARISON STUDY: Chest radiograph December 15, 2016. FINDINGS: Lung volumes are normal. There is no pneumothorax or pleural effusion. No consolidation is identified. Cardiac size is normal. Mediastinal contours are normal. There is no evidence for pulmonary edema. IMPRESSION: No acute cardiopulmonary findings. Medications Administered Medications (Trade) Dose Ordered Sig/Connor Route Start Time Stop Time Status Last Admin Dose Admin Albuterol/ Ipratropium (Duoneb) 3 ml NOW ONCE INH 12/16/17 01:00 12/16/17 01:01 DC 12/16/17 01:08 3 ML Prednisone (PredniSONE TAB) 40 mg NOW STAT PO 12/16/17 00:58 12/16/17 01:00 DC 12/16/17 01:08 40 MG ED Course Physical exam and history were performed. Nursing notes, EMR, and Medication List were personally reviewed. Patient appears to have persistent coughing symptoms for the past 10 days. He has been using [id number], and is with wheezing and rhonchi on exam. The patient was given oral prednisone as well as a DuoNeb here in the department. Chest x-ray was performed and reviewed by myself and radiology as showing no acute process. On reevaluation the patient had significant improvement of his symptoms. I discussed options of care with the patient, and will provide him a course of Zithromax, prednisone, and an albuterol inhaler. He evidently has an upcoming appointment in 3 days with his primary care physician, and was asked to keep this appointment. The patient was otherwise invited back to the ER with any new , worsening, or concerning symptoms. The chart was completed utilizing [employer] Voice Recognition Software. Grammatical errors, random word insertions, pronoun errors, and incomplete sentences are an occasional consequence of this system due to software limitations, ambient noise, and hardware issues. Any formal questions or concerns about the content, text, or information contained within the body of this dictation should be directly addressed to the provider for clarification. . Medical Decision Differential diagnosis: Etiologies such as infections, reactive airway disease, pneumonia, pneumothorax , COPD, CHF, cardiac ischemia, pulmonary embolism, musculoskeletal, gastrointestinal, as well as others were entertained. Impression Primary Impression: Acute bronchitis Departure Information Dispostion Home / Self-Care Condition GOOD Prescriptions Albuterol Hfa (VENTOLIN HFA) 200 Puffs/96127 Mcg Aers 2 PUFFS INH QID for 5 Days, #1 INHALER Prov: Dion Desai PA-C 12/16/17 Prednisone (Prednisone Tab) 20 Mg Tab 2 TAB PO DAILY for 5 Days, #10 TAB Prov: Dion Desai PA-C 12/16/17 Azithromycin (ZITHROMAX Z-MICKEY) 250 Mg Tab 1 PKT PO UD for 5 Days, #1 PKT Prov: Dion Desai PA-C 12/16/17 Referrals Bob Talbot M.D. (PCP) Forms HOME CARE DOCUMENTATION FORM, IMPORTANT VISIT INFORMATION Patient Instructions My [facility] Additional Instructions You were seen and evaluated today on an emergency basis only. This is not a substitute for, or an effort to provide, complete comprehensive medical care. It is not possible to recognize and treat all injuries or illnesses in a single emergency department visit. For this reason it is recommended that you followup with your primary care physician as scheduled for ongoing care and evaluation. Take Zithromax as prescribed Take prednisone as prescribed. Use your albuterol inhaler 2 puffs every 4-6 hours as needed You are welcome to return to the emergency department anytime with new, worsening, or concerning symptoms.
== END 2017-12-16 02:10 | disposition home or self-care (01) ==
LOC: C.EDB 00:14 → C.EDC 02:10
DX: J20.9 Acute bronchitis, unspecified (principal); J45.909 Unspecified asthma, uncomplicated; F17.210 Nicotine dependence, cigarettes, uncomplicated; Z87.01 Personal history of pneumonia (recurrent); Z80.9 Family history of malignant neoplasm, unspecified; Z83.3 Family history of diabetes mellitus; Z83.79 Family history of other diseases of the digestive system; Z82.49 Family history of ischemic heart disease and other diseases of the circulatory system; Z84.1 Family history of disorders of kidney and ureter; Z83.6 Family history of other diseases of the respiratory system; Z82.0 Family history of epilepsy and other diseases of the nervous system